=== PATIENT | male | born 1985 | race American Indian/Alaskan Native ===

== ENCOUNTER 2017-12-30 16:24 | Emergency (ER) | payer SELFPAY ==
[2017-12-30 17:27] VITALS: BP 149/103
--- NOTE | 2017-12-30 20:14 | Emergency Department Report ---
- General Chief Complaint: Wound/Laceration Stated Complaint: INFECTED WOUND Time Seen by Provider: 12/30/17 20:13 Source: patient Mode of arrival: Ambulatory Limitations: No Limitations - History of Present Illness Initial Comments: Patient reports that he had left leg injury to his ankle on 12/21/2017 and he went to urgent care on 12/2306/22/2018 and was placed on doxycycline which she has been taking for 7 days and he reports that the wound is not getting better. He said it has not drained any more but redness is not better. Reports pain 4 out of 10 dull worse with movement. No [id number] medication taken. Patient said he did not get a tetanus vaccine. He last took doxycycline this evening. Patient presents to emergency with concern of wound not healing. Denies any numbness or tingling. Denies any fever or chills. Patient reports no medical problems. 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 Onset/Timin -: days(s) Extremity Location: Left: Lower Leg (right, swollen with wound), Foot (reds, swollen) Place: outdoors Patient Tetanus UTD: No Context: accidental Associated Symptoms: pain. denies: loss of feeling/numbness, suspect foreign body present, unable to move injured part, weakness followed by dizziness, nausea/vomiting, fever Treatments Prior to Arrival: other (antibiotic) - Related Data Previous Rx's Medication Instructions Recorded Last Taken Type Clindamycin [Clindamycin CAP] 300 mg PO Q6H 10 Days #40 capsule 12/30/17 Unknown Rx Ibuprofen [Motrin] 600 mg PO Q8H PRN #15 tablet 12/30/17 Unknown Rx Allergies Allergy/AdvReac Type Severity Reaction Status Date / Time No Known Allergies Allergy Verified 12/30/17 17:23 ED Review of Systems ROS: Stated complaint: INFECTED WOUND Other details as noted in HPI Comment: All other systems reviewed and negative Constitutional: no symptoms reported ENT: denies: ear pain, throat pain Respiratory: no symptoms reported Cardiovascular: denies: chest pain, palpitations, dyspnea on exertion, edema, syncope, paroxysmal nocturnal dyspnea Gastrointestinal: denies: abdominal pain, nausea, vomiting, diarrhea Genitourinary: denies: dysuria, hematuria Musculoskeletal: joint swelling, arthralgia. denies: back pain, myalgia Skin: other (erythema, redness and swelling to left lower extremity at the foot and the leg) Neurological: denies: headache, numbness, paresthesias, abnormal gait, vertigo ED Past Medical Hx - Past Medical History Previous Medical History?: No - Surgical History Past Surgical History?: No - Family History Family history: no significant - Social History Smoking Status: Current Every Day Smoker Substance Use Type: Alcohol - Medications Home Medications: Home Medications Medication Instructions Recorded Confirmed Last Taken Type Clindamycin [Clindamycin CAP] 300 mg PO Q6H 10 Days #40 capsule 12/30/17 Unknown Rx Ibuprofen [Motrin] 600 mg PO Q8H PRN #15 tablet 12/30/17 Unknown Rx ED Physical Exam - General Limitations: No Limitations General appearance: alert, in no apparent distress - Head Head exam: Present: atraumatic, normocephalic, normal inspection - Eye Eye exam: Present: normal appearance, PERRL, EOMI Pupils: Present: normal accommodation - ENT ENT exam: Present: normal exam, normal orophraynx, mucous membranes moist - Neck Neck exam: Present: normal inspection, full ROM. Absent: tenderness, meningismus, lymphadenopathy, thyromegaly - Respiratory Respiratory exam: Present: normal lung sounds bilaterally. Absent: respiratory distress, chest wall tenderness, accessory muscle use - Cardiovascular Cardiovascular Exam: Present: regular rate, normal rhythm, normal heart sounds. Absent: systolic murmur, diastolic murmur - GI/Abdominal GI/Abdominal exam: Present: soft, normal bowel sounds. Absent: distended, tenderness, guarding, rebound, rigid - Extremities Exam Extremities exam: Present: full ROM, tenderness (left distal leg anteriorly), normal capillary refill, pedal edema ( left foot, dorsal/proximal), joint swelling (mild swelling to left ankle and left foot proximally, dorsal), other ( no clubbing, cyanosis. Positive pulses all extremities. No neurovascular compromise. Left distal leg with a wound that is closed. Tender to palpate. No drainage. Erythema left distal leg extending into the proximal anterior foot dorsally. Patient able to ambulate without any difficulties. +5 strength in all extremities. Negative sign and extremities except for left foot anteriorly and left distal leg.). Absent: normal inspection, calf tenderness - Expanded Lower Extremity Exam Left Hip exam: Present: normal inspection, full ROM, pelvic stability. Absent: tenderness, swelling, abrasion, laceration, ecchymosis, deformity, crepidus, dislocation, erythema, external rotation, internal rotation, shortening Upper Leg exam: Present: normal inspection, full ROM. Absent: tenderness, swelling, abrasion, laceration, ecchymosis, deformity, crepidus, dislocation, erythema Knee exam: Present: normal inspection, full ROM, full knee extension. Absent: tenderness, swelling, abrasion, laceration, ecchymosis, deformity, crepidus, dislocation, erythema, effusion, pain w/ pronation/supination, posterior draw sign, pain/laxity with valgus, pain/laxity with varus Lower Leg exam: Present: normal inspection, full ROM, tenderness (distal, anterior), swelling (distal anterior), laceration (laceration, closed distal anterior. 4 cm circular.). Absent: abrasion, ecchymosis, deformity, crepidus, dislocation, erythema, palpable cord, Carlton's sign Ankle exam: Present: full ROM, swelling (minimal swelling), erythema (mild erythema, anterior). Absent: normal inspection, tenderness, abrasion, laceration, ecchymosis, deformity, crepidus, dislocation Foot/Toe exam: Present: full ROM, swelling (minimal swelling proximal, dorsal with erythema), erythema. Absent: normal inspection, tenderness, abrasion, laceration, ecchymosis, deformity, crepidus, dislocation, amputation (proximal, dorsal), puncture wound, foreign body, calcaneal tenderness, tenderness at base of 5th metatarsal, nail avulsion, subungual hematoma Neuro vascular tendon exam: Absent: no vascular compromise, pulse deficit, abnormal cap refill, motor deficit, sensory deficit, tendon deficit, extremity cold to touch, pallor, abnormal 2-point discrimination, decreased fine/light touch, foot drop, peroneal nerve deficit, significant pain with passive ROM of distal joint Gait: Positive: observed and normal - Back Exam Back exam: Present: normal inspection, full ROM. Absent: tenderness, CVA tenderness (R), CVA tenderness (L), muscle spasm, paraspinal tenderness, vertebral tenderness, rash noted - Neurological Exam Neurological exam: Present: alert, oriented X3, normal gait, reflexes normal. Absent: motor sensory deficit - Psychiatric Psychiatric exam: Present: normal affect, normal mood - Skin Skin exam: Present: warm, dry, intact, erythema. Absent: cyanosis, diaphoretic , urticaria, vesicles, petechiae, pallor, abrasion, ecchymosis - Expanded Skin Exam Expanded Type of lesion: Present: laceration (patient with 10-day-old laceration that appears to be healing.) Distribution of rash: LLE (distally, anterior) Description of rash: Present: size (4 cm, circular), tenderness, erythematous, swelling, crusting. Absent: vesicular, blisters, petechial, purpuic, urticarial , discharge, fluctuant, indurated ED Course Vital Signs 12/30/17 17:23 Temperature 98.1 F Pulse Rate 74 Respiratory 16 Rate Blood Pressure 149/103 O2 Sat by Pulse 98 Oximetry - Reevaluation(s) Reevaluation #1: 12/30/17 20:51 Patient given tetanus vaccine update. Boostrix 0.5 ml IM, clindamycin 600 mg IM without any adverse reaction. Patient did not want anything for pain wound care done with normal saline and Neosporin ointment followed by sterile nonadhesive gauze dressing. ED Medical Decision Making - Medical Decision Making ED course: Patient presents to emergency room 10 days after being injured to his left distal leg. He was seen at urgent care 2 days after he had laceration to his distal left leg. He was placed on doxycycline which she said has been taken since 12/23/2017 and he said "strain" when he was placed on antibiotic but now the drainage has stopped but he reports redness and swelling has not reduced. Patient is on doxycycline and I discussed with him that he needs to stop doxycycline and I will start him on clindamycin antibiotic as it provides broader coverage. He received clindamycin 600 mg IM and emergency room and Boostrix 0.5 mL without any adverse reaction. Wound care done. Wound is closed but still with Crusting. 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 We discussed follow-up care for cellulitis and he said he usually goes to urgent care where of her E that. I discussed with him that he needs to follow up with primary care physician/ urgent care in 3 days for reevaluation of wound and cellulitis. Patient was understanding and discharged home to discontinue doxycycline and start clindamycin and Motrin. Critical care attestation.: If time is entered above; I have spent that time in minutes in the direct care of this critically ill patient, excluding procedure time. ED Disposition Clinical Impression: Cellulitis of left anterior lower leg, Impaired wound healing Arthralgia of lower leg Qualifiers: Laterality: left Qualified Code(s): M25.562 - Pain in left knee Disposition: - TO HOME OR SELFCARE Is pt being admited?: No Does the pt Need Aspirin: No Condition: Stable Instructions: Arthralgia (ED), Acute Wound Care (ED), Wound Infection (ED), Cellulitis (ED) Additional Instructions: Please take antibiotic as prescribed and utilize good Rx card given Please follow up with primary care/urgent care in 2-3 days for follow-up cellulitis left lower extremity. If you develop increased redness, swelling, fever and/or chills, increased pain and/or drainage from affected area please follow up sooner. Please follow discharge instruction on wound care. Keep affected area clean and dry Prescriptions: Clindamycin [Clindamycin CAP] 300 mg PO Q6H 10 Days #40 capsule Ibuprofen [Motrin] 600 mg PO Q8H PRN #15 tablet PRN Reason: Pain Referrals: [facility] [Outside] - 2-3 Days Forms: Work/School Release Form(ED)
[2017-12-30] MEDS ORDERED: TRIPLE ANTIBIOTIC TP ONE (20:16)
[2017-12-30] MEDS ORDERED: CLEOCIN IM ONE (20:16)
[2017-12-30] MEDS ORDERED: BOOSTRIX IM ONE (20:16)
== END 2017-12-30 22:02 | disposition home or self-care (01) ==
LOC: ED 16:24
DX: L03.116 Cellulitis of left lower limb (principal); F17.200 Nicotine dependence, unspecified, uncomplicated
CPT/HCPCS: 90471; 90715; 96372; 99282; A6250